=== PATIENT | female | born 1995 | race Caucasian/White ===

== ENCOUNTER 2018-04-06 12:41 | Inpatient (IN) | payer MEDICAID, OTHER ==
[~2018-04-06] VITALS: Ht 177.8 cm; Wt 98.6 kg
[~2018-04-06 12:41] MED LIST: SERT50TA12 PO
[2018-04-06 14:14] LABS: BASOPHILS % (AUTO) 0.6 % (0.0-2.0); EOSINOPHILS % (AUTO) 2.7 % (1.0-6.0); HEMATOCRIT 39.5 % (36-46); HEMOGLOBIN 13.9 g/dL (12.0-16.0); LYMPHOCYTES # (AUTO) 2.6 K/uL (1.0-4.8); MEAN CORPUSCULAR HEMOGLOBIN 33.2 pg (26.0-34.0); MEAN CORPUSCULAR HGB CONC 35.3 G/dL (31.0-37.0); MEAN CORPUSCULAR VOLUME 94 fL (80-100); MONOCYTES # (AUTO) 0.6 K/uL (0.1-1.0); NEUTROPHILS % (AUTO) 53.7 % (40.0-70.0); RED CELL DISTRIBUTION WIDTH 12.2 % (11.5-14.5)
[2018-04-06 14:18] LABS: ANION GAP 10 mmol/L (8-16); CALCIUM, TOTAL 8.5 mg/dL (8.8-10.5); CARBON DIOXIDE 25 mmol/L (22-29); CHLORIDE 105 mmol/L (98-107); CREATININE 0.68 mg/dL (0.60-1.30); GLOMERULAR FILTR. RATE CALC > 60 mL/min (>60); GLUCOSE,RANDOM 93 mg/dL (70-110); POTASSIUM 4.2 mmol/L (3.5-5.1); SODIUM SERUM 140 mmol/L (136-145); UREA NITROGEN, BLOOD 10 mg/dL (7-18)
[2018-04-06 14:24] LABS: ALANINE AMINOTRANSFERASE 23 U/L (12-78); ALBUMIN 3.6 g/dL (3.4-5.0); ALKALINE PHOSPHATASE 56 U/L (46-116); ASPARTATE AMINOTRANSFERASE 21 U/L (15-37); BILIRUBIN,TOTAL 0.2 mg/dL (0.1-1.0); TOTAL PROTEIN, SERUM 7.4 g/dL (6.4-8.2)
[2018-04-06 14:38] LABS: PLATELET COUNT (AUTO) 244 K/uL (150-450)
[2018-04-06 14:41] LABS: AMPHET/METH SCREEN,URINE NEGATIVE (NEGATIVE); BARBITURATE SCREEN, URINE NEGATIVE (NEGATIVE); BENZODIAZEPINES SCREEN,URINE NEGATIVE (NEGATIVE); CANNABINOID SCREEN,URINE NEGATIVE (NEGATIVE); COCAINE SCREEN,URINE NEGATIVE (NEGATIVE); METHADONE SCREEN, URINE NEGATIVE (NEGATIVE); OPIATE SCREEN,URINE NEGATIVE (NEGATIVE)
[2018-04-06 14:43] LABS: PHENCYCLIDINE SCREEN,URINE NEGATIVE (NEGATIVE)
[2018-04-06] MEDS ORDERED: DiphenhydrAMINE HCL 25 MG CAPSULE PO ONE (15:15)
[2018-04-06] MEDS ORDERED: LORazepam 2 MG TABLET PO ONE (15:15)
[2018-04-06] MEDS ORDERED: HALOPERIDOL 5 MG TABLET PO ONE (15:15)
[2018-04-06] MEDS ORDERED: LORazepam 2 MG TABLET PO PRN (16:15)
[2018-04-06] MEDS ORDERED: ZOLPIDEM TARTRATE 10 MG TABLET PO PRN (16:15)
[2018-04-06] MEDS ORDERED: HALOPERIDOL 5 MG TABLET PO PRN (16:15)
[2018-04-06 17:35] VITALS: BP 117/72
[2018-04-07 06:10] VITALS: BP 113/71
[2018-04-07 08:01] LABS: HEMOGLOBIN A1C 5.4 % (4.5-6.2)
[2018-04-07 08:24] LABS: CHOL/HDL RATIO 2.6 (3.9-5.7); FREE T4 (FREE THYROXINE) 0.72 ng/dL (0.76-1.46); THYROID STIMULATING HORMONE 1.45 uIU/mL (0.36-3.74)
[2018-04-07 08:25] VITALS: BP 111/71
[2018-04-07] MEDS: DIVALPROEX SODIUM 500 MG DR TABLET PO SCH ×2 (10:12→16:17)
[2018-04-07] MEDS: BuPROPion HCL 100 MG SR TABLET PO SCH ×2 (10:12→16:17)
[2018-04-07 16:50] VITALS: BP 114/69
[2018-04-07] MEDS ORDERED: RisperiDONE 2 MG TABLET PO SCH (21:00)
[2018-04-07] MEDS ORDERED: IBUPROFEN 400 MG TABLET PO PRN (22:30)
[2018-04-07] MEDS ORDERED: ACETAMINOPHEN 325 MG TABLET PO PRN (22:30)
[2018-04-08 06:15] VITALS: BP 112/74
[2018-04-08] MEDS: DIVALPROEX SODIUM 500 MG DR TABLET PO SCH (09:01)
[2018-04-08] MEDS: BuPROPion HCL 100 MG SR TABLET PO SCH (09:01)
[2018-04-08 09:33] VITALS: BP 114/78
[2018-04-08] MEDS ORDERED: BUPR100SR PO (12:14)
[2018-04-08] MEDS ORDERED: DIVA500T35 PO (12:14)
[2018-04-08] MEDS ORDERED: RISP2 PO (12:14)
== END 2018-04-08 14:20 | disposition home or self-care (01) | DRG 750 ==
LOC: EMS 12:42 → B2S 16:33
PROVIDERS: ADMIT Psychiatry & Neurology Psychiatry; ATTEND Psychiatry & Neurology Psychiatry
DX: F25.9 Schizoaffective disorder, unspecified (principal); I95.9 Hypotension, unspecified; R45.851 Suicidal ideations; F32.9 Major depressive disorder, single episode, unspecified; E03.9 Hypothyroidism, unspecified; F41.9 Anxiety disorder, unspecified; G47.00 Insomnia, unspecified; H40.9 Unspecified glaucoma; Z91.5 Personal history of self-harm; Z83.3 Family history of diabetes mellitus
CPT/HCPCS: 83036; 84439; 84443; 99285; G0480